=== PATIENT | male | born 1985 | race Hispanic/Latino ===

== ENCOUNTER 2019-04-21 15:32 | Emergency (ER) | payer BC ==
[2019-04-21] MEDS ORDERED: KETOROLAC TROMETHAMINE 60 MG/2 ML VIAL ONE (16:16)
[2019-04-21 16:42] LABS: BASOPHILS % (AUTO) 0.6 % (0.0-5.0); EOSINOPHILS % (AUTO) 1.7 % (0.0-8.0); HEMATOCRIT 43.8 % (42-54); LYMPHOCYTES % (AUTO) 15.4 % (21.0-51.0); MEAN CORPUSCULAR HEMOGLOBIN 29.1 pg (27.0-33.0); MEAN CORPUSCULAR VOLUME 85.4 fL (79-99); MONOCYTES % (AUTO) 6.3 % (3.0-13.0); NUCLEATED RED BLOOD CELLS 0.1 % (0.0-0.19); PLATELET COUNT (AUTO) 247 K/uL (130-400); RED BLOOD CELL COUNT(AUTO) 5.12 MIL/uL (4.50-6.20); RED CELL DISTRIBUTION WIDTH 14.2 % (11.0-15.5); WHITE BLOOD COUNT (AUTO) 12.2 K/uL (4.8-10.8)
[2019-04-21 16:54] LABS: CREATININE 1.1 mg/dL (0.5-1.5); POTASSIUM 4.3 mmol/L (3.5-5.1)
== END 2019-04-21 18:09 | disposition home or self-care (01) ==
LOC: EDH 15:32
DX: J01.90 Acute sinusitis, unspecified (principal); K21.9 Gastro-esophageal reflux disease without esophagitis; J30.2 Other seasonal allergic rhinitis
CPT/HCPCS: 36415; 70450; 70486; 80048; 85025; 96372; 99285; J1885

== ENCOUNTER 2020-01-17 19:47 | Emergency (ER) | payer BC, OTHER ==
[2020-01-21] MEDS ORDERED: CETI-109 PO (22:18)
== END 2020-01-17 23:37 | disposition home or self-care (01) ==
LOC: EDH 19:47
DX: S02.32XA Fracture of orbital floor, left side, initial encounter for closed fracture (principal); K21.9 Gastro-esophageal reflux disease without esophagitis; Z90.49 Acquired absence of other specified parts of digestive tract; Z79.899 Other long term (current) drug therapy; Y08.89XA Assault by other specified means, initial encounter; Y93.89 Activity, other specified; Y92.89 Other specified places as the place of occurrence of the external cause; Y99.8 Other external cause status
CPT/HCPCS: 70480

== ENCOUNTER 2020-01-20 18:21 | Emergency (ER) | payer SELFPAY ==
[2020-01-21] MEDS ORDERED: CETI-89 PO (22:18)
[2020-01-21] MEDS ORDERED: ESOM20CA31 PO (22:18)
== END 2020-01-20 18:41 | disposition left against medical advice (07) ==
LOC: EDH 18:21
DX: Z53.21 Procedure and treatment not carried out due to patient leaving prior to being seen by health care provider (principal)

== ENCOUNTER 2020-01-21 18:49 | Observation (INO) | payer OTHER ==
[~2020-01-21] VITALS: Ht 172.7 cm; Wt 138.4 kg
[2020-01-21] MEDS ORDERED: MORPHINE SULFATE 2 MG/ML 1ML SYG IVP PRN (19:45)
[2020-01-21] MEDS ORDERED: ACETAMINOPHEN-CODEINE 300/30MG TAB PO PRN (19:45)
[2020-01-21] MEDS ORDERED: CEFAZOLIN SODIUM 1 GM VIAL ONE (19:54)
[2020-01-21] MEDS: CEFAZOLIN SODIUM 1 GM VIAL IVP SCH (20:00)
[2020-01-21 22:15] VITALS: BP 140/75
--- NOTE | 2020-01-21 22:15 | NUR ---
ADMIT NOTE ADMIT TO ROOM 330 VIA W/C FROM ER. PATIENT AWAKE, ALERT, OX3, NO SOB, NO C/O PAIN AT THIS TIME, LEFT EYE BRUISING, NO VISUAL DISTURBANCES, LEFT WRIST 18 GAUGE PATENT, TEACH PATIENT PLAN OF CARE AND EXPECTED OUTCOME, NPO PAST 3 AM, PATIENT VERBALIZES UNDERSTANDING VIA TEACH BACK
[2020-01-21] MEDS ORDERED: ESOM20CA31 PO (22:18)
[2020-01-21] MEDS ORDERED: CETI-89 PO (22:18)
[2020-01-22] VITALS (25 sets, daily range): BP systolic 97–158; BP diastolic 49–86
[2020-01-22 03:47] LABS: BASOPHILS % (AUTO) 0.3 % (0.0-5.0); EOSINOPHILS % (AUTO) 1.4 % (0.0-8.0); HEMATOCRIT 46.1 % (42-54); LYMPHOCYTES % (AUTO) 27.6 % (21.0-51.0); MEAN CORPUSCULAR HEMOGLOBIN 28.7 pg (27.0-33.0); MEAN CORPUSCULAR HGB CONC 34.5 g/dL (32.0-36.0); MEAN CORPUSCULAR VOLUME 83.2 fL (79-99); NEUTROPHILS % (AUTO) 63.2 % (40.0-77.0); PLATELET COUNT (AUTO) 275 K/uL (130-400); RED BLOOD CELL COUNT(AUTO) 5.54 MIL/uL (4.50-6.20); RED CELL DISTRIBUTION WIDTH 13.6 % (11.0-15.5); WHITE BLOOD COUNT (AUTO) 10.1 K/uL (4.8-10.8)
[2020-01-22 04:01] LABS: INR 0.94 (0.85-1.15); PARTIAL THROMBOPLASTIN TIME 32.7 SEC (26.3-35.5); PROTHROMBIN TIME 10.2 SEC (9.6-11.6)
[2020-01-22 04:02] LABS: ALBUMIN 4.2 g/dL (3.5-5.0); BILIRUBIN,TOTAL 0.4 mg/dL (0.2-1.0); CREATININE 0.9 mg/dL (0.5-1.5); POTASSIUM 4.1 mmol/L (3.5-5.1); TOTAL PROTEIN, SERUM 7.7 g/dL (6.0-8.3)
[2020-01-22] MEDS: CEFAZOLIN SODIUM 1 GM VIAL IVP SCH ×3 (04:34→20:11)
--- NOTE | 2020-01-22 15:17 | NUR ---
PATIENT TAKEN TO SURGERY. IPHONE LEFT IN HIS BACKPACK.
[2020-01-22] MEDS ORDERED: CEFAZOLIN SODIUM 1 GM VIAL ONE (15:24)
[2020-01-22] MEDS ORDERED: ONDANSETRON HCL 4 MG/2 ML VIAL ONE (15:39)
[2020-01-22] MEDS ORDERED: MIDAZOLAM HCL 1 MG/ML 2ML VIAL ONE (15:39)
[2020-01-22] MEDS ORDERED: LIDOCAINE PF 2% 5ML ABBOJECT ONE (15:39)
[2020-01-22] MEDS ORDERED: DEXAMETHASONE SOD PHOSPHATE 10MG/ML 1ML VIAL ONE (15:39)
[2020-01-22] MEDS ORDERED: ROCURONIUM 10MG/1ML SYR 10 MG/ML ML ONE (15:40)
[2020-01-22] MEDS ORDERED: PROPOFOL 10 MG/ML 20ML VIAL IV ONE (15:40)
[2020-01-22] MEDS ORDERED: FENTANYL CITRATE PF 50 MCG/1 ML 2ML VIAL ONE ×2 (15:40→16:29)
[2020-01-22] MEDS ORDERED: NEOSTIGMINE 5MG/5ML SYR IV ONE (16:29)
[2020-01-22] MEDS ORDERED: GLYCOPYRROLATE 1 MG/5 ML SYRINGE ONE (16:29)
[2020-01-22] MEDS ORDERED: KETOROLAC TROMETHAMINE 30MG/ML ONE (16:57)
[2020-01-22] MEDS ORDERED: MEPERIDINE-PF 25 MG/ML SYG ONE ×2 (17:05→17:13)
--- NOTE | 2020-01-22 20:00 | NUR ---
ASSESSMENT NOTE PATIENT AWAKE, ALERT, OX3, NO SOB, NO C/O PAIN AT THIS TIME,INCISION UNDER LEFT EYE D/I, NO VISUAL DISTURBANCES,TEACH PATIENT PLAN OF CARE AND EXPECTED OUTCOME, PATIENT VERBALIZES UNDERSTANDING VIA TEACH BACK
[2020-01-22] MEDS: ACETAMINOPHEN-CODEINE 300/30MG TAB PO PRN (20:11)
[2020-01-23] MEDS: CEFAZOLIN SODIUM 1 GM VIAL IVP SCH (03:46)
[2020-01-23] MEDS: ACETAMINOPHEN-CODEINE 300/30MG TAB PO PRN ×2 (03:47→08:40)
[2020-01-23 03:53] VITALS: BP 111/47
[2020-01-23 08:25] VITALS: BP 111/65
--- NOTE | 2020-01-23 11:12 | NUR ---
DISCHARGE PATIENT GIVEN DISCHARGE INSTRUCTIONS AND EDUCATION ON FOLLOW UP APPOINTMENTS, NEW PRESCRIBED MEDICATIONS AND INCISION CARE. PATIENT VERBALIZED UNDERSTANDING OF ALL EDUCATION GIVEN VIA TEACH BACK. NO DISTRESS NOTED UPON DISCHARGE. ALL BELONGINGS TAKEN WITH.
== END 2020-01-23 10:37 | disposition home or self-care (01) ==
LOC: EDH 18:49 → INTOOBSV 18:50 → EDHIP 18:50 → 3AH 21:10
PROVIDERS: ADMIT Surgery Plastic and Reconstructive Surgery; ATTEND Surgery Plastic and Reconstructive Surgery
DX: S02.32XA Fracture of orbital floor, left side, initial encounter for closed fracture (principal); E66.01 Morbid (severe) obesity due to excess calories; K21.9 Gastro-esophageal reflux disease without esophagitis; Z68.42 Body mass index [BMI] 45.0-49.9, adult; X58.XXXA Exposure to other specified factors, initial encounter; Y93.89 Activity, other specified; Y92.89 Other specified places as the place of occurrence of the external cause; Y99.8 Other external cause status
CPT/HCPCS: 21406; 36415; 80053; 85025; 85610; 85730; 96374; 96376 ×2; 99284; A4930 ×2; C1713 ×2; G0168; G0378 ×7; J0690 ×6; J1100; J1885; J2001; J2175 ×2; J2250; J2405; J2704; J2710; J3010 ×2; J3490

== ENCOUNTER 2025-04-17 13:28 | Emergency (ER) | payer OTHER ==
[~2025-04-17] VITALS: Ht 172.7 cm; Wt 133.8 kg
[~2025-04-17 13:28] MED LIST: CETI-89 PO; ESOM20CA31 PO
[2025-04-17 13:29] VITALS: BP 137/79; PULSE 87; RESP 18; TEMP 97.7
[2025-04-17] MEDS: ORPHENADRINE 60MG/2ML IM ONE (13:58)
--- NOTE | 2025-04-17 13:59 | ERN ---
ED Note History of Present Illness Stated Complaint: LT ARM PAIN Chief Complaint: Upper Extremity Pain/Injury Time Seen by MD: 13:41 Time Seen by Midlevel: 13:42 Dictation: Mr. Reeder is a 39 year old male with history of obesity who presented to [facility] this afternoon for evaluation of left arm pain. He reports chronic neck pain for which she receives chiropractic treatments in [place]. He reports left shoulder/scapula pain as well as anterior shoulder x2 days. He has pain with range of motion, albeit with pain. He states he feels like he has a weaker money manager on the left-hand side. He denies trauma/injury. He states he had similar symptoms 1-1/2 weeks ago; nontraumatic, states he woke up with the pain. He states at that time the pain was less severe and lasted only two days. Allergies: Coded Allergies: No Known Drug Allergies (Verified Allergy, Unknown, 01/21/20) Home Meds Active Scripts Prednisone (Prednisone) 20 Mg Tablet, 40 MG PO DAILYBKFST for 4 Days, #4 TAB 0 Refills Prov:LEODAN CHERRY [facility] 04/17/25 Ibuprofen (Ibuprofen) 600 Mg Tablet, 600 MG PO Q6H PRN for PAIN, #15 TAB 0 Refills Prov:LEODAN CHERRY [facility] 04/17/25 Cyclobenzaprine HCl (Cyclobenzaprine HCl) 5 Mg Tablet, 5 MG PO q8 hours pRN for muscle spasm, #15 TAB 0 Refills Prov:LEODAN CHERRY [facility] 04/17/25 Reported Medications Cetirizine HCl (Zyrtec) 10 Mg Tablet, 10 MG PO DAILY, TAB 01/21/20 Esomeprazole Magnesium (Nexium) 20 Mg Capsule.dr, 20 MG PO DAILY, CAP 01/21/20 Past Medical History Past Medical History: Other (Obesity, chronic neck pain) Surgical History: None PSYCH History: no pertinent psych hx Social History: Negative, Lives with family RN Note Reviewed/Agreed w/PFSH: Yes Review of System Dictation REVIEW OF SYSTEMS: CONSTITUTIONAL: Patient denies fevers, chills, sweats and weight changes. EYES: Patient denies any visual symptoms. EARS, NOSE, AND THROAT: No difficulties with hearing. No symptoms of rhinitis or sore throat. CARDIOVASCULAR: Patient denies chest pains, palpitations, orthopnea and paroxysmal nocturnal dyspnea. RESPIRATORY: No dyspnea on exertion, no wheezing or cough. GI: No nausea, vomiting, diarrhea, constipation, abdominal pain, hematochezia or melena. : No urinary hesitancy or dribbling. No nocturia or urinary frequency. No abnormal urethral discharge. MUSCULOSKELETAL: Reports pain to left shoulder/scapula as well as anterior shoulder. Reports full range of motion but with pain. He states that he feels like his money manager is weaker on the left. NEUROLOGIC: No chronic headaches, no seizures. Patient denies numbness, tingling or weakness. PSYCHIATRIC: Patient denies problems with mood disturbance. No problems with anxiety. ENDOCRINE: No excessive urination or excessive thirst. DERMATOLOGIC: Patient denies any rashes or skin changes. Initial Vital Sign VS Vital Signs Date Time Temp Pulse Resp B/P (MAP) Pulse Ox O2 Delivery O2 Flow Rate FiO2 04/17/25 13:29 97.7 87 18 137/79 98 Physical Exam Dictation Vital signs: Reviewed. Afebrile Constitutional: No acute distress. Non-toxic appearing. Head/Face: Normocephalic, atraumatic. Eyes: Periorbital areas with no swelling, redness, or edema. Lids and lashes are normal. Conjunctival injection is absent. Sclera anicteric. Pupils equal, round, reactive to light. ENT: Pinnas intact and no signs of trauma or erythema. Ear canals clear and no discharge. TMs no erythema. No nasal discharge or bleeding noted. Oropharynx with no exudate, redness, swelling, masses, exudates, or evidence of obstruction. Uvula midline. Mucous membranes moist. Neck: Trachea midline, no masses palpated, and no cervical lymphadenopathy. No swelling. Supple, full range of motion. Chest/Axilla: No tenderness, no crepitus, no paradoxical movement, no retractions. Cardiovascular: Regular rate, regular rhythm, no murmur, no gallops. Symmetric pulses. No peripheral edema. Respiratory: Respirations even and unlabored. Lung sounds clear; no wheezes, rales or rhonchi. Room air SpO2 98% Gastrointestinal: Inspection is normal. No distention is appreciated. Bowel sounds are normal. No mass or organomegaly . There is no tenderness. No rebound. No rigidity. No voluntary or involuntary guarding. No Manuel's sign. Neurological: Normal speech, gross motor function intact, gross sensory function intact. No focal weakness/Paresthesia. Musculoskeletal/Extremities: Pulses symmetrical. Neck: Full range of motion without limitation. No midline cervical tenderness. No step-offs, crepitus, or deformities. Paraspinal muscles without tenderness or spasm. Left shoulder full active and passive range of motion, though movement reproduces discomfort. No visible deformity, no swelling, no ecchymosis. There are no step-off deformi ties palpated over the clavicle, AC joint, scapula, or humeral head. Tenderness noted along the left scapular border and anterior shoulder. Strength is intact the patient reports subjectively weaker money manager on the left. Back/scapular region: No midline thoracic or lumbar tenderness. No step-offs or deformities. Localized tenderness over the left scapular region. No muscle spasm or winging. Neurovascular: Left upper extremity with normal color, warmth, movement, and sensation. Capillary refills less than 2 seconds. He has intact radial pulse. Sensation intact to light touch. He has full motor function with mild subjective money manager weakness on left. Integumentary: Intact. Skin is normal color, warm and dry. Cap refill less than 2 seconds. Results (Laboratory/Radiology) CT Scan Comment: PATIENT: MILAN REEDER MR#: [id number] : 1985 SEX: M AGE: 39 LOCATION: [facility] ORDER 1353 STATUS: [facility] REPORT#: [id number] SERVICE 1351 REASON: left shoulder pain, money manager weak ORDERING PHYSICIAN: LEODAN CHERRY [employer] PROCEDURE: C SPIN WO - CT CERVICAL SPINE W/O CONTRAST EXAM: CT Cervical Spine Without IV contrast. CLINICAL HISTORY: left shoulder pain, money manager weak TECHNIQUE: Axial computed tomography images of the cervical spine without intravenous contrast. Sagittal and coronal reformatted images were generated. COMPARISON: None provided. FINDINGS: ALIGNMENT: Straightening of the cervical spine which can be seen with paraspinal muscle spasm. DEGENERATIVE CHANGES: Mild degenerative changes which are most pronounced in the lower cervical spine. Posterior disc osteophyte complex at C6/C7 with moderate canal stenosis. SOFT TISSUES: The prevertebral soft tissues are within normal limits. BONES: No fracture or dislocation in the cervical spine. IMPRESSION: 1. No fracture or dislocation in the cervical spine. 2. Mild degenerative changes which are most pronounced in the lower cervical spine. Posterior disc osteophyte complex at C6/C7 with moderate canal stenosis. 3. Straightening of the cervical spine which can be seen with paraspinal muscle spasm. /[place] DICTATED BY: FREDDY TAY MD DATE: 04/17/251548 ELECTRONICALLY SIGNED BY: FREDDY TAY MD DATE: 04/17/251548 ED Course ED Course Orders Procedure Category Date Status Time Ketorolac 60mg/2ml PHA 04/17/25 Complete (Toradol 60mg/2ml) 14:00 Orphenadrine Citrate PHA 04/17/25 Complete (Norflex) 14:00 Ketorolac PHA 04/17/25 Complete Tromethamine 30mg/Ml 14:00 Ct Cervical Spine W/O CT 04/17/25 Resulted Contrast 13:51 Shoulder Comp 2+Vws Lt RAD 04/17/25 Resulted 13:51 Prednisone 20mg Tab PHA 04/17/25 Complete (Deltasone/Orasone 2 14:00 Current Medications Medications (Trade) Dose Ordered Sig/Jennifer Route PRN Reason Start Time Stop Time Status Last Admin Dose Admin Ketorolac Tromethamine (toRADol 60MG/ 2ML) 30 mg ONCE ONCE IM 04/17/25 14:00 04/17/25 13:46 DC Ketorolac Tromethamine (toRADol) 30 mg ONCE ONCE IM 04/17/25 14:00 04/17/25 14:01 DC 04/17/25 13:59 Orphenadrine Citrate (Norflex) 60 mg ONCE ONCE IM 04/17/25 14:00 04/17/25 14:01 DC 04/17/25 13:58 Prednisone (deltaSONE/ oraSONE 20MG TAB) 40 mg ONCE ONCE PO 04/17/25 14:00 04/17/25 14:01 DC 04/17/25 13:59 Vital Signs Date Time Temp Pulse Resp B/P (MAP) Pulse Ox O2 Delivery O2 Flow Rate FiO2 04/17/25 13:29 97.7 87 18 137/79 98 Uneventful ED course. Vital signs remained stable; afebrile with room air SpO2 98%. Normotensive. He received doses Toradol, prednisone, and Norflex IM. X- ray of the shoulders unremarkable with no obvious fracture. CT scan of the cervical spine without contrast negative for fracture or dislocation. There was mild degenerative changes which are most pronounced in the lower cervical spine. Posterior disc osteophyte complex at this C6/C7 with moderate canal stenosis. There is straightening of the cervical spine which can be seen with paraspinal muscle spasm. Findings were discussed with patient and all questions were answered. Medical Decision Making MDM MDM: Differential diagnosis: Muscle strain, fracture shoulder, AC separation, cervical radiculopathy Rationale: Tests considered and ordered secondary to shared decision making include: X-ray, CT Previous outside records reviewed: Old ER visits. Risk of complication and/or morbidity or mortality of patient management: None Medications-Per medication reconciliation Need for hospitalization: Patient does not meet criteria for hospitalization. Need for emergency major/minor surgery: No There are no social concerns with this patient. Prescription drug management: Prednisone, Flexeril, ibuprofen Prescriptions will include symptomatic care Patient's prior external medical records from other ER visits were reviewed by me as indicated. Prior testing and results from previous visits were reviewed. Prior tests were taken into account with medical decision making and resource utilization, independent historian/historians were used to obtain complete medical history. I independently interpreted the test that were performed, results were reviewed by me and considered findings on radiology if ordered. Medical management and examination interpretation discussions were had by me with other qualified healthcare professionals as indicated for the patient's care. DX & DISP Disposition: Discharge Departure Impression: Primary Impression: Cervical radiculopathy at C6 Additional Impressions: Cervical radiculopathy at C7, Muscle spasm of left shoulder Condition: Stable Scripts Prednisone (Prednisone) 20 Mg Tablet 40 MG PO DAILYBKFST for 4 Days, #4 TAB 0 Refills Prov: ERICKSONEduardLEODAN Cintia [employer] 04/17/25 Ibuprofen (Ibuprofen) 600 Mg Tablet 600 MG PO Q6H PRN for PAIN, #15 TAB 0 Refills Prov: ERICKSONEduardLEODAN Cintia [employer] 04/17/25 Cyclobenzaprine HCl (Cyclobenzaprine HCl) 5 Mg Tablet 5 MG PO q8 hours pRN for muscle spasm, #15 TAB 0 Refills Prov: LEODAN CHERRY [employer] 04/17/25 Additional Instructions: You were evaluated today for left shoulder and scapular pain. Your shoulder x- ray was normal, and your CT scan of the cervical spine showed no fracture or dislocation. You do have degenerative changes and muscle spasm in your lower cervical spine, especially at C6-C7, which can cause pain in the shoulder place, neck, and upper back. This is consistent with cervical radiculopathy and muscle strain. You will continue prednisone 40 mg once daily with food. You may take ibuprofen every 6-8 hours as needed for discomfort. You may take Flexeril every 8 hours as needed for muscle spasms; this medication may cause drowsiness-do not drive, drink alcohol or operate machinery when taking it. Avoid heavy lifting, pushing, pulling, or overhead activity for several days. Apply heat the neck/upper back for 15-20 minutes at a time. Gentle stretching when pain improves. Maintain good posture and avoid prolonged looking down at rasta ne/tablets. Use a supported pillow and avoid sleeping on multiple stacked pillows. Follow up with your primary care physician in 1-2 weeks. You may be referred to Orthopedics, Neurology, or physical therapy if symptoms persist. If symptoms do not improve, you may require an MRI of the cervical spine. Return to the ER immediately if you develop: New or worsening weakness in the arm or hand. Numbness spreading down the arm. Loss of bowel or bladder control. Severe, unrelenting pain. Fever, chills, or any new concerning symptoms. Referrals: COLBY COMBS MD (PCP) Time of Disposition: 15:18 ATTESTATION BY PHYSICIAN I PERFORMED THE SUBSTANTIVE PORTION OF THE VISIT. I HAVE REVIEWED AND PERSONALLY MADE AND APPROVED THE MANAGEMENT PLAN THAT IS DOCUMENTED IN THE NOTE BY MYSELF FOR THE A PP. LEODAN CHERRY GENTRY Apr 17, 2025 13:59 JACK CAM MD Apr 19, 2025 08:52
--- NOTE | 2025-04-17 14:50 | HMCIMG ---
EXAM: CT Cervical Spine Without IV contrast. CLINICAL HISTORY: left shoulder pain, hazardous materials waste technician weak TECHNIQUE: Axial computed tomography images of the cervical spine without intravenous contrast. Sagittal and coronal reformatted images were generated. COMPARISON: None provided. FINDINGS: ALIGNMENT: Straightening of the cervical spine which can be seen with paraspinal muscle spasm. DEGENERATIVE CHANGES: Mild degenerative changes which are most pronounced in the lower cervical spine. Posterior disc osteophyte complex at C6/C7 with moderate canal stenosis. SOFT TISSUES: The prevertebral soft tissues are within normal limits. BONES: No fracture or dislocation in the cervical spine. IMPRESSION: 1. No fracture or dislocation in the cervical spine. 2. Mild degenerative changes which are most pronounced in the lower cervical spine. Posterior disc osteophyte complex at C6/C7 with moderate canal stenosis. 3. Straightening of the cervical spine which can be seen with paraspinal muscle spasm. /[place]
[2025-04-17] MEDS ORDERED: PRED20TA3 PO (15:16)
[2025-04-17] MEDS ORDERED: CYCL5TAB3 PO (15:16)
[2025-04-17] MEDS ORDERED: IBUP-1492 PO (15:16)
--- NOTE | 2025-04-17 15:26 | HMCIMG ---
EXAM: CR left Shoulder, 3 View. CLINICAL HISTORY: shoulder pain, scapula COMPARISON: None provided. FINDINGS: BONES: No acute fracture or aggressive appearing osseous lesion. JOINTS: No dislocation. The joint spaces are normal. SOFT TISSUES: The soft tissues are unremarkable. IMPRESSION: No acute abnormality evident on examination of the left shoulder. No acute fracture or dislocation. /[place]
== END 2025-04-17 15:24 | disposition home or self-care (01) ==
LOC: EDH 13:28
DX: M54.12 Radiculopathy, cervical region (principal); M62.838 Other muscle spasm; E66.9 Obesity, unspecified; Z79.899 Other long term (current) drug therapy
CPT/HCPCS: 99285; 72125; 73030; 96372 ×2; J1885; J2360